=== PATIENT | male | born 1975 | race American Indian/Alaskan Native ===

== ENCOUNTER 2022-02-19 07:06 | Inpatient (IN) | payer BC, OTHER ==
--- NOTE | 2022-02-19 07:35 | Consultation ---
Medications and Allergies Allergies Allergy/AdvReac Type Severity Reaction Status Date / Time No Known Allergies Allergy Unverified 02/19/22 07:23 Physical Examination - Vital Signs Vital Signs: Vital Signs Temp Pulse Resp BP Pulse Ox 98.1 F 70 16 198/124 98 02/19/22 07:06 02/19/22 07:06 02/19/22 07:06 02/19/22 07:06 02/19/22 07:06 Assessment and Plan [facility] Consult Note # Demographics Consult Type: Acute Stroke Level 1 (0-4.5 hrs) Patient Location: Emergency Room First Name: Feroz Last Name: Doyle Date of : 1975 Age: 46 Gender: Male Facility: [facility] Time of Initial Page (): 02/19/2022, 07:21 Time of Return Call (): 02/19/2022, 07:23 # HPI History: 46M woke up with numbness and tingling to left arm and leg. No speech or vision trouble. Trouble sleeping last night, last well 05:30 reported. # Scores Time of exam and NIHSS (): 02/19/2022, 07:31 Level of Consciousness 1a: [0] = Alert; keenly responsive LOC Questions 1b: [0] = Answers both questions correctly LOC Commands 1c: [0] = Performs both tasks correctly Best Gaze 2: [0] = Normal Visual 3: [0] = No visual loss Facial Palsy 4: [0] = Normal symmetrical movements Motor Arm Left 5a: [0] = No drift Motor Arm Right 5b: [0] = No drift Motor Leg Left 6a: [0] = No drift Motor Leg Right 6b: [0] = No drift Limb Ataxia 7: [0] = Absent Sensory 8: [0] = Normal Best Language 9: [0] = No aphasia Dysarthria 10: [0] = Normal Extinction and Inattention 11: [0] = No abnormality NIHSS Total: 0 VAN Screening: Negative # PMH-FH-SH Past Medical History: hypertension Medications: non-compliant with medications # Data Time Head CT personally read by me ( Time): 02/19/2022, 07:[address]: no bleed preliminarily reviewed by me, please refer to radiology read for official reading # Assessment Impression: Ischemic Stroke (Acute) or hypertension related symptoms also possible. Deficit at time of my evaluation was non-disabling. # Plan Thrombolytic/Intervention: NOT IV Thrombolysis or IA Intervention candidate Thrombolytic Exclusion (< 3 hour window): non-disabling deficit Intraarterial Exclusion: clinically consistent with small vessel disease Blood Pressure Management: nicardipine labetolol Target Blood Pressure: SBP < 220 Imaging: (urgency: STAT): CT Head without contrast Imaging: (urgency: routine): MR Angiogram Head without contrast MR Angiogram Neck with contrast MRI Brain without contrast Diagnostic Test: echo with bubble study Medication: aspirin 81 mg daily start statin with goal of LDL < 70 Other: LDL < 70 If patient has any neurological deterioration please call me back immediately permissive hypertension telemetry monitoring I have discussed my recommendations with the referring provider Disposition: admit # Logistics Telemedicine: Interactive 2 way audio and visual telecommunication technology was utilized during this visit # Demographics First Name: Feroz Last Name: Doyle Facility: [facility]
--- NOTE | 2022-02-19 08:08 | XRay Report ---
CHEST 1 VIEW 02/19/2022 7:36 AM INDICATION / CLINICAL INFORMATION: CVA. COMPARISON: None available. FINDINGS: SUPPORT DEVICES: None. HEART / MEDIASTINUM: No significant abnormality. LUNGS / PLEURA: No significant pulmonary or pleural abnormality. No pneumothorax. ADDITIONAL FINDINGS: No significant additional findings. IMPRESSION: 1. No acute findings. Signer Name: Rajan Mas DO Signed: 02/19/2022 8:03 AM Workstation Name: [id number]
--- NOTE | 2022-02-19 08:15 | Cat Scan Report ---
CT head/brain wo con INDICATION / CLINICAL INFORMATION: 46 years Male; Stroke symptoms. TECHNIQUE: Routine CT head without contrast. All CT scans at this location are performed using CT dos e reduction for ALARA by means of automated exposure control. COMPARISON: None. FINDINGS: BRAIN / INTRACRANIAL CONTENTS: There are mild periventricular white matter changes which are nonspeci fic though may reflect microvascular angiopathy. There also appear to be old lacunar infarcts within the basal ganglia. The ventricular system is within normal limits in size and configuration. There is no clear CT evidence of acute intracranial hemorrhage or significant mass effect. ORBITS: No significant abnormality of visualized orbits. SINUSES / MASTOIDS: No significant abnormality in the visualized paranasal sinuses or mastoid air david ls. CRANIOCERVICAL JUNCTION: No significant abnormality. ADDITIONAL FINDINGS: None. IMPRESSION: 1. There is microvascular angiopathy as detailed above without CT ends of acute intracranial hemorrha ge. Signer Name: Jono Turcios MD Signed: 02/19/2022 8:11 AM Workstation Name: [email or web address]
[2022-02-19 08:25] LABS: Basophils % (Auto) 0.3 % (0.0-1.8); Eosinophils # (Auto) 0.1 K/mm3 (0.0-0.4); Eosinophils % (Auto) 0.8 % (0.0-4.3); Hemoglobin 17.2 gm/dl (11.8-15.2); Lymphocytes # (Auto) 0.9 K/mm3 (1.2-5.4); Lymphocytes % (Auto) 8.5 % (13.4-35.0); Mean Corpuscular HGB Conc 35 % (32-34); Mean Corpuscular Volume 95 fl (84-94); Monocytes % (Auto) 9.6 % (0.0-7.3); Platelet Count 223 K/mm3 (140-440); Red Blood Count 5.18 M/mm3 (3.65-5.03); Red Cell Distribution Width 13.2 % (13.2-15.2)
[2022-02-19] MEDS ORDERED: hydrALAZINE 20 MG/1 ML INJ IV ONE ×2 (08:33→13:37)
[2022-02-19 08:36] LABS: Creatine Kinase MB 2.8 ng/mL (0.0-4.0)
[2022-02-19 08:38] LABS: Alanine Aminotransferase 18 units/L (7-56); Albumin 4.7 g/dL (3.9-5); BUN/Creatinine Ratio 15; Blood Urea Nitrogen 18 mg/dL (9-20); Calcium 9.6 mg/dL (8.4-10.2); Hemolysis Index 8
--- NOTE | 2022-02-19 08:47 | Emergency Department Report ---
ED Neuro Deficit HPI - General Chief Complaint: Neuro Symptoms/Deficit Stated Complaint: HIGH BP/LEFT SIDE NUMBNESS Time Seen by Provider: 02/19/22 07:21 Source: patient, EMS Mode of arrival: Stretcher Limitations: Physical Limitation - History of Present Illness Initial Comments: PATIENT HYPERTENSIVE WITH LEFT SIDE NUMBNESS. NONCOMPLIANT WITH BLOOD PRESSURE MEDICATIONS -: Sudden, hour(s) Location: left arm, left leg Presenting Symptoms: Present: Weak/Paralyzed One Side History of same: No Place: home Severity: mild Quality: weak, numb Improves With: time Worsens With: none On Anticoagulants: No Context: sudden onset Associated Symptoms: denies: denies other symptoms, confusion, chest pain, cough, diaphoresis, fever/chills - Related Data Allergies/Adverse Reactions: Allergies Allergy/AdvReac Type Severity Reaction Status Date / Time No Known Allergies Allergy Unverified 02/19/22 07:23 ED Review of Systems ROS: Stated complaint: HIGH BP/LEFT SIDE NUMBNESS Other details as noted in HPI Constitutional: denies: chills, fever Eyes: denies: eye pain, eye discharge, vision change ENT: denies: ear pain, throat pain Respiratory: denies: cough, shortness of breath, wheezing Cardiovascular: denies: chest pain, palpitations Endocrine: no symptoms reported Gastrointestinal: denies: abdominal pain, nausea, diarrhea Genitourinary: denies: urgency, dysuria Musculoskeletal: denies: back pain, joint swelling, arthralgia Skin: denies: rash, lesions Neurological: denies: headache, weakness, paresthesias Psychiatric: denies: anxiety, depression Hematological/Lymphatic: denies: easy bleeding, easy bruising ED Past Medical Hx - Past Medical History Previous Medical History?: No Hx Hypertension: No ED Neuro Physical Exam - General Limitations: Physical Limitation General appearance: alert, in no apparent distress Suspected Stroke: Yes - Head Head exam: Present: atraumatic, normocephalic - Eye Eye exam: Present: normal appearance - ENT ENT exam: Present: mucous membranes moist - Neck Neck exam: Present: normal inspection - Respiratory Respiratory exam: Present: normal lung sounds bilaterally. Absent: respiratory distress - Cardiovascular Cardiovascular Exam: Present: regular rate, normal rhythm. Absent: systolic murmur, diastolic murmur, rubs, gallop - GI/Abdominal GI/Abdominal exam: Present: soft, normal bowel sounds - Rectal Rectal exam: Present: deferred - Extremities Exam Extremities exam: Present: normal inspection - Back Exam Back exam: Present: normal inspection - Neurological Exam Neurological exam: Present: alert, oriented X3 - NIHSS Assessment Interval: Baseline 1a. Level of Consciousness: alert/keenly responsive 1b. LOC Questions: answers both correctly 1c. LOC Commands: performs tasks correctly 2. Best Gaze: normal 3. Visual: no visual loss 4. Facial Palsy: normal symmetrical movement 5b. Motor Arm Right: no drift 5a. Motor Arm Left: no drift 6a. Motor Leg Left: no drift 6b. Motor Leg Right: no drift 7. Limb Ataxia: absent 8. Sensory: normal 9. Best Language: no aphasia 10. Dysarthria: normal 11. Extinction/Inattention: no abnormality Total Score: 0 Stroke Severity: No Stroke Symptoms - Psychiatric Psychiatric exam: Present: normal affect, normal mood - Skin Skin exam: Present: warm, dry, intact, normal color. Absent: rash ED Course Vital Signs 02/19/22 07:06 Temperature 98.1 F Pulse Rate 70 Respiratory 16 Rate Blood Pressure 198/124 [Left] O2 Sat by Pulse 98 Oximetry - Lab Data Result diagrams: 02/19/22 07:42 02/19/22 07:42 Lab Results 02/19/22 02/19/22 02/19/22 Range/Units 07:42 07:42 07:42 WBC 10.1 (4.5-11.0) K/mm3 RBC 5.18 H (3.65-5.03) M/mm3 Hgb 17.2 H (11.8-15.2) gm/dl Hct 49.0 H (35.5-45.6) % MCV 95 H (84-94) fl MCH 33 H (28-32) pg MCHC 35 H (32-34) % RDW 13.2 (13.2-15.2) % Plt Count 223 (140-440) K/mm3 Lymph % (Auto) 8.5 L (13.4-35.0) % Creek % (Auto) 9.6 H (0.0-7.3) % Eos % (Auto) 0.8 (0.0-4.3) % Baso % (Auto) 0.3 (0.0-1.8) % Lymph # (Auto) 0.9 L (1.2-5.4) K/mm3 [place] # (Auto) 1.0 H (0.0-0.8) K/mm3 Eos # (Auto) 0.1 (0.0-0.4) K/mm3 Baso # (Auto) 0.0 (0.0-0.1) K/mm3 Seg Neutrophils % 80.8 H (40.0-70.0) % Seg Neutrophils # 8.2 H (1.8-7.7) K/mm3 Sodium 143 (137-145) mmol/L Potassium 4.0 (3.6-5.0) mmol/L Chloride 103.5 (98-107) mmol/L Carbon Dioxide 26 (22-30) mmol/L Anion Gap 18 mmol/L BUN 18 (9-20) mg/dL Creatinine 1.2 (0.8-1.3) mg/dL Estimated GFR > 60 ml/min BUN/Creatinine Ratio 15 % Glucose 90 (75-100) mg/dL Calcium 9.6 (8.4-10.2) mg/dL Total Bilirubin 0.90 (0.1-1.2) mg/dL AST 22 (5-40) units/L ALT 18 (7-56) units/L Alkaline Phosphatase 70 (35-129) units/L Total Creatine Kinase 179 H (55-170) units/L CK-MB (CK-2) 2.8 (0.0-4.0) ng/mL CK-MB (CK-2) Rel Index 1.5 (0-4) Troponin T < 0.010 (0.00-0.029) ng/mL Total Protein 6.9 (6.3-8.2) g/dL Albumin 4.7 (3.9-5) g/dL Albumin/Globulin Ratio 2.1 % Plasma/Serum Alcohol < 0.01 (0-0.07) % - Radiology Data Radiology results: report reviewed, image reviewed - Medical Decision Making stroke alert , spoe with neuro, NIHSS of 0 , will admit for MRI , will control BP not candidate for TPA non disbalingsymtpoms Critical care attestation.: If time is entered above; I have spent that time in minutes in the direct care of this critically ill patient, excluding procedure time. ED Disposition Clinical Impression: Left sided numbness, TIA (transient ischemic attack) Disposition: ADMITTED INPATIENT Is pt being admited?: Yes Does the pt Need Aspirin: No Condition: Stable
[2022-02-19 09:34] LABS: INR 0.93 (0.87-1.13); Partial Thromboplastin Time 31.1 Sec. (24.2-36.6)
[2022-02-19 09:35] LABS: Thrombin Time 16.2 Sec. (15.1-19.6)
[2022-02-19] MEDS ORDERED: MORPHINE 4 MG/1 ML INJ IV PRN (11:00)
[2022-02-19] MEDS ORDERED: ONDANSETRON 4 MG/2 ML INJ IV PRN (11:00)
[2022-02-19] MEDS ORDERED: oxyCODONE /ACETAMINOPHEN 5-325MG TAB PO PRN (11:00)
[2022-02-19 11:52] LABS: Chol/HDL Ratio 2.66 %
[2022-02-19 12:39] LABS: Amphetamine Screen,Urine Negative; Benzodiazepines Screen,Urine Negative; Cannabinoid Screen,Urine Negative; Cocaine Screen,Urine Negative; Methadone Screen,Urine Negative; Opiate Screen,Urine Negative
[2022-02-19 12:54] LABS: Bilirubin,Urine NEG (Negative); Blood,Urine NEG (Negative); Color,Urine Yellow (Yellow); RBC,Urine < 1.0 /HPF (0.0-6.0); Urobilinogen,Urine < 2 mg/dL (<2.0); WBC,Urine < 1.0 /HPF (0.0-6.0)
--- NOTE | 2022-02-19 16:06 | History and Physical Report ---
History of Present Illness Date of examination: 02/19/22 Date of admission: 02/19/22 10:42 Chief complaint: Left arm and leg weakness History of present illness: Patient is a 46-year-old male past medical history of hypertension and medication noncompliance who presented to the ED with numbness and tingling of his left arm and leg after waking up this morning. Patient describes having trouble sleeping the night prior to presentation but was last seen well at approximately 5:30 PM. Patient denies any vision or speech abnormalities. Patient denies any history of stroke. In the ED, the patient was found to be hemodynamically stable with a blood pressure of 198/124. Patient's labs were unremarkable. Teleneurology was consulted, and the patient was not deemed to be a candidate for tPA. Patient is being admitted to the floor for CVA work-up. Past History Past Medical History: hypertension Past Surgical History: No surgical history Social history: single, full code Family history: hypertension, stroke Medications and Allergies Allergies Allergy/AdvReac Type Severity Reaction Status Date / Time No Known Allergies Allergy Unverified 02/19/22 07:23 Active Meds: Active Medications Acetaminophen (Acetaminophen 325 Mg Tab) 650 mg PO Q4H PRN PRN Reason: Pain MILD(1-3)/Fever >100.5/ARROYO Aspirin (Aspirin 325 Mg Tab) 325 mg PO QDAY CHRISTY Atorvastatin Calcium (Atorvastatin 40 Mg Tab) 40 mg PO QHS CHRISTY Morphine Sulfate (Morphine 4 Mg/1 Ml Inj) 2 mg IV Q4H PRN PRN Reason: Pain , Severe (7-10) Nifedipine (Nifedipine Xl 30 Mg Tab) 30 mg PO QDAY CHRISTY Ondansetron HCl (Ondansetron 4 Mg/2 Ml Inj) 4 mg IV Q8H PRN PRN Reason: Nausea And Vomiting Oxycodone/Acetaminophen (Oxycodone /Acetaminophen 5-325mg Tab) 1 tab PO Q6H PRN PRN Reason: Pain, Moderate (4-6) Sodium Chloride (Sodium Chloride 0.9% 10 Ml Flush Syringe) 10 ml IV BID CHRISTY Sodium Chloride (Sodium Chloride 0.9% 10 Ml Flush Syringe) 10 ml IV PRN PRN PRN Reason: LINE FLUSH Review of Systems All systems: negative Neurological: weakness (of R arm and leg), numbness (of R arm and leg) Exam - Constitutional Vitals: Temp Pulse Resp BP Pulse Ox 97.5 F L 61 14 202/112 98 02/19/22 10:01 02/19/22 13:30 02/19/22 13:30 02/19/22 13:30 02/19/22 13:30 General appearance: Present: no acute distress, well-nourished - EENT Eyes: Present: PERRL, EOM intact ENT: hearing intact, clear oral mucosa, dentition normal - Neck Neck: Present: supple, normal ROM - Respiratory Respiratory effort: normal Respiratory: bilateral: CTA - Cardiovascular Rhythm: regular Heart Sounds: Present: S1 & S2 - Extremities Extremities: no ischemia, pulses intact, pulses symmetrical, No edema, normal temperature, normal color Peripheral Pulses: within normal limits - Abdominal General gastrointestinal: Present: soft, non-tender, non-distended, normal bowel sounds Male genitourinary: Present: deferred - Rectal Rectal Exam: deferred - Integumentary Integumentary: Present: clear, warm, dry - Musculoskeletal Musculoskeletal: left sided weakness - Psychiatric Psychiatric: appropriate mood/affect (Numbness), intact judgment & insight, memory intact, cooperative - Neurologic Neurologic: CNII-XII intact, other (Numbness of left upper and lower extremity; 3/5 strength left upper extremity) - Allied Health Allied health notes reviewed: nursing HEART Score - HEART Score Troponin: Troponin T < 0.010 ng/mL (0.00-0.029) 02/19/22 07:42 Results - Labs CBC & Chem 7: 02/19/22 07:42 02/19/22 07:42 Labs: Laboratory Last Values WBC 10.1 K/mm3 (4.5-11.0) 02/19/22 07:42 RBC 5.18 M/mm3 (3.65-5.03) H 02/19/22 07:42 Hgb 17.2 gm/dl (11.8-15.2) H 02/19/22 07:42 Hct 49.0 % (35.5-45.6) H 02/19/22 07:42 MCV 95 fl (84-94) H 02/19/22 07:42 MCH 33 pg (28-32) H 02/19/22 07:42 MCHC 35 % (32-34) H 02/19/22 07:42 RDW 13.2 % (13.2-15.2) 02/19/22 07:42 Plt Count 223 K/mm3 (140-440) 02/19/22 07:42 Lymph % (Auto) 8.5 % (13.4-35.0) L 02/19/22 07:42 [place] % (Auto) 9.6 % (0.0-7.3) H 02/19/22 07:42 Eos % (Auto) 0.8 % (0.0-4.3) 02/19/22 07:42 Baso % (Auto) 0.3 % (0.0-1.8) 02/19/22 07:42 Lymph # (Auto) 0.9 K/mm3 (1.2-5.4) L 02/19/22 07:42 [place] # (Auto) 1.0 K/mm3 (0.0-0.8) H 02/19/22 07:42 Eos # (Auto) 0.1 K/mm3 (0.0-0.4) 02/19/22 07:42 Baso # (Auto) 0.0 K/mm3 (0.0-0.1) 02/19/22 07:42 Seg Neutrophils % 80.8 % (40.0-70.0) H 02/19/22 07:42 Seg Neutrophils # 8.2 K/mm3 (1.8-7.7) H 02/19/22 07:42 PT 13.8 Sec. (12.2-14.9) 02/19/22 07:42 INR 0.93 (0.87-1.13) 02/19/22 07:42 APTT 31.1 Sec. (24.2-36.6) 02/19/22 07:42 Thrombin Time 16.2 Sec. (15.1-19.6) 02/19/22 07:42 Sodium 143 mmol/L (137-145) 02/19/22 07:42 Potassium 4.0 mmol/L (3.6-5.0) 02/19/22 07:42 Chloride 103.5 mmol/L (98-107) 02/19/22 07:42 Carbon Dioxide 26 mmol/L (22-30) 02/19/22 07:42 Anion Gap 18 mmol/L 02/19/22 07:42 BUN 18 mg/dL (9-20) 02/19/22 07:42 Creatinine 1.2 mg/dL (0.8-1.3) 02/19/22 07:42 Estimated GFR > 60 ml/min 02/19/22 07:42 BUN/Creatinine Ratio 15 % 02/19/22 07:42 Glucose 90 mg/dL (75-100) 02/19/22 07:42 Hemoglobin A1c 4.4 % (4-6) 02/19/22 11:04 Calcium 9.6 mg/dL (8.4-10.2) 02/19/22 07:42 Total Bilirubin 0.90 mg/dL (0.1-1.2) 02/19/22 07:42 AST 22 units/L (5-40) 02/19/22 07:42 ALT 18 units/L (7-56) 02/19/22 07:42 Alkaline Phosphatase 70 units/L (35-129) 02/19/22 07:42 Total Creatine Kinase 179 units/L (55-170) H 02/19/22 07:42 CK-MB (CK-2) 2.8 ng/mL (0.0-4.0) 02/19/22 07:42 CK-MB (CK-2) Rel Index 1.5 (0-4) 02/19/22 07:42 Troponin T < 0.010 ng/mL (0.00-0.029) 02/19/22 07:42 Total Protein 6.9 g/dL (6.3-8.2) 02/19/22 07:42 Albumin 4.7 g/dL (3.9-5) 02/19/22 07:42 Albumin/Globulin Ratio 2.1 % 02/19/22 07:42 Triglycerides 73 mg/dL (2-149) 02/19/22 11:05 Cholesterol 192 mg/dL (50-199) 02/19/22 11:05 LDL Cholesterol Direct 110 mg/dL (50-130) 02/19/22 11:05 HDL Cholesterol 72 mg/dL (40-59) H 02/19/22 11:05 Cholesterol/HDL Ratio 2.66 % 02/19/22 11:05 Urine Color Yellow (Yellow) 02/19/22 12:17 Urine Turbidity Clear (Clear) 02/19/22 12:17 Urine pH 6.0 (5.0-7.0) 02/19/22 12:17 Ur Specific [place] 1.013 (1.003-1.030) 02/19/22 12:17 Urine Protein 30 mg/dl mg/dL (Negative) 02/19/22 12:17 Urine Glucose (UA) Neg mg/dL (Negative) 02/19/22 12:17 Urine Ketones Tr mg/dL (Negative) 02/19/22 12:17 Urine Blood Neg (Negative) 02/19/22 12:17 Urine Nitrite Neg (Negative) 02/19/22 12:17 Urine Bilirubin Neg (Negative) 02/19/22 12:17 Urine Urobilinogen < 2 mg/dL (<2.0) 02/19/22 12:17 Ur Leukocyte Esterase Neg (Negative) 02/19/22 12:17 Urine WBC (Auto) < 1.0 /HPF (0.0-6.0) 02/19/22 12:17 Urine RBC (Auto) < 1.0 /HPF (0.0-6.0) 02/19/22 12:17 U Epithel Cells (Auto) < 1.0 /HPF (0-13.0) 02/19/22 12:17 Urine Opiates Screen Negative 02/19/22 12:17 Urine Methadone Screen Negative 02/19/22 12:17 Ur Barbiturates Screen Negative 02/19/22 12:17 Ur Phencyclidine Scrn Negative 02/19/22 12:17 Ur Amphetamines Screen Negative 02/19/22 12:17 U Benzodiazepines Scrn Negative 02/19/22 12:17 Urine Cocaine Screen Negative 02/19/22 12:17 U Marijuana (THC) Screen Negative 02/19/22 12:17 Drugs of Abuse Note Disclamer 02/19/22 12:17 Plasma/Serum Alcohol < 0.01 % (0-0.07) 02/19/22 07:42 Assessment and Plan Assessment and plan: Patient is a 46-year-old male past medical history of hypertension and medication noncompliance who presented to the ED with numbness and tingling of his left arm and leg after waking up this morning. Patient describes having trouble sleeping the night prior to presentation but was last seen well at approximately 5:30 PM. Patient denies any vision or speech abnormalities. Patient denies any history of stroke. In the ED, the patient was found to be h emodynamically stable with a blood pressure of 198/124. Patient's labs were unremarkable. Teleneurology was consulted, and the patient was not deemed to be a candidate for tPA. Patient is being admitted to the floor for CVA work-up. #Possible acute ischemic CVA #Weakness of right upper and lower extremity Unremarkable CT head noncontrast Pending MRI brain without contrast to evaluate for possible acute ischemic CVA. Pending TTE to evaluate cardiac function and for possible PFO/ASD. Continue aspirin 325 mg daily, atorvastatin 40 mg daily. Neurology consulted; pending recs. Physical therapy and Occupational Therapy consulted; pending recs Cholesterol panel: Triglycerides 73, cholesterol 192, LDL 110, HDL 72; Hemoglobin A1c 4.4 #Hypertensive emergency - home medications: None - current medications: Nifedipine 30 mg daily. Allowing permissive hypertension in the setting of possible acute ischemic CVA. - continue to monitor #Tobacco dependence #Tobacco/Smoking cessation counseling - Counseled patient about the importance of smoking cessation and the possible sequelae as a result of continued tobacco consumption. The patient expresses understanding. Starting nicotine 14 mg patch daily. -Time: +15 mins Critical Care Billing: The high probability of a clinically significant, sudden or life threatening deterioration of the [cardiac] system(s) required my full and direct attention, intervention and personal management. The aggregate critical care time was [60] minutes. This time is in addition to time spent performing reported procedures but includes the following: [x] Data Review and interpretation [x] Patient assessment and monitoring of vital signs [x] Documentation [x] Medication orders and management Advance Directives: No VTE prophylaxis?: Mechanical Plan of care discussed with patient/family: Yes
[2022-02-19] MEDS: NIFEdipine XL 30 MG TAB PO SCH ×2 (17:42→18:43)
[2022-02-19] MEDS: NICOTINE 14 MG/24 HR PATCH TD SCH (22:20)
[2022-02-19] MEDS: hydrALAZINE 20 MG/1 ML INJ IV PRN (22:28)
[2022-02-20] MEDS: NIFEdipine XL 30 MG TAB PO SCH (09:30)
[2022-02-20] MEDS: ASPIRIN 325 MG TAB PO SCH (09:31)
[2022-02-20] MEDS: NICOTINE 14 MG/24 HR PATCH TD SCH (09:31)
--- NOTE | 2022-02-20 12:06 | Progress Note ---
Assessment and Plan Assessment and plan: Patient is a 46-year-old male past medical history of hypertension and medication noncompliance who presented to the ED with numbness and tingling of his left arm and leg after waking up this morning. Patient describes having trouble sleeping the night prior to presentation but was last seen well at approximately 5:30 PM. Patient denies any vision or speech abnormalities. Patient denies any history of stroke. In the ED, the patient was found to be hemodynamically stable with a blood pressure of 198/124. Patient's labs were unremarkable. Teleneurology was consulted, and the patient was not deemed to be a candidate for tPA. Patient is being admitted to the floor for CVA work-up. #Possible acute ischemic CVA #Weakness of right upper and lower extremity Unremarkable CT head noncontrast Pending MRI brain without contrast to evaluate for possible acute ischemic CVA. Pending TTE to evaluate cardiac function and for possible PFO/ASD. Continue aspirin 325 mg daily, atorvastatin 40 mg daily. Neurology consulted; pending recs. Physical therapy and Occupational Therapy consulted; recommending acute rehab. Cholesterol panel: Triglycerides 73, cholesterol 192, LDL 110, HDL 72; Hemoglobin A1c 4.4 #Hypertensive emergency - home medications: None - current medications: Nifedipine 30 mg daily. Allowing permissive hypertension in the setting of possible acute ischemic CVA. - continue to monitor #Tobacco dependence #Tobacco/Smoking cessation counseling - Counseled patient about the importance of smoking cessation and the possible sequelae as a result of continued tobacco consumption. The patient expresses understanding. Starting nicotine 14 mg patch daily. -Time: +15 mins #Advanced care planning -Disease education conducted, care plan discussed, diagnoses discussed, prognosis discussed, and patient acknowledges understanding with care plan -Time: +30 min Disposition Plan: Continue medical management Total Time Spent with Patient (Minutes): 45 minutes History Interval history: No acute events overnight. Hospitalist Physical - Constitutional Vitals: Temp Pulse Resp BP Pulse Ox 98.2 F 92 H 18 158/95 95 02/20/22 04:32 02/20/22 04:32 02/20/22 04:32 02/20/22 04:32 02/20/22 04:32 General appearance: Present: no acute distress, well-nourished - EENT Eyes: Present: PERRL, EOM intact ENT: hearing intact, clear oral mucosa, dentition normal - Neck Neck: Present: supple, normal ROM - Respiratory Respiratory effort: normal Respiratory: bilateral: CTA - Cardiovascular Rhythm: regular Heart Sounds: Present: S1 & S2 - Extremities Extremities: no ischemia, pulses intact, pulses symmetrical, No edema, normal temperature, normal color Peripheral Pulses: within normal limits - Abdominal General gastrointestinal: soft, non-tender, non-distended, normal bowel sounds - Integumentary Integumentary: Present: clear, warm, dry - Psychiatric Psychiatric: appropriate mood/affect, intact judgment & insight, memory intact, cooperative - Neurologic Neurologic: CNII-XII intact, focal deficits (Weakness of left upper and lower extremities; numbness of left upper and lower extremities) - Allied Health Allied health notes reviewed: nursing HEART Score - HEART Score Troponin: Troponin T < 0.010 ng/mL (0.00-0.029) 02/19/22 07:42 Results - Labs CBC & Chem 7: 02/19/22 07:42 02/19/22 07:42 Labs: Laboratory Last Values WBC 10.1 K/mm3 (4.5-11.0) 02/19/22 07:42 RBC 5.18 M/mm3 (3.65-5.03) H 02/19/22 07:42 Hgb 17.2 gm/dl (11.8-15.2) H 02/19/22 07:42 Hct 49.0 % (35.5-45.6) H 02/19/22 07:42 MCV 95 fl (84-94) H 02/19/22 07:42 MCH 33 pg (28-32) H 02/19/22 07:42 MCHC 35 % (32-34) H 02/19/22 07:42 RDW 13.2 % (13.2-15.2) 02/19/22 07:42 Plt Count 223 K/mm3 (140-440) 02/19/22 07:42 Lymph % (Auto) 8.5 % (13.4-35.0) L 02/19/22 07:42 [place] % (Auto) 9.6 % (0.0-7.3) H 02/19/22 07:42 Eos % (Auto) 0.8 % (0.0-4.3) 02/19/22 07:42 Baso % (Auto) 0.3 % (0.0-1.8) 02/19/22 07:42 Lymph # (Auto) 0.9 K/mm3 (1.2-5.4) L 02/19/22 07:42 [place] # (Auto) 1.0 K/mm3 (0.0-0.8) H 02/19/22 07:42 Eos # (Auto) 0.1 K/mm3 (0.0-0.4) 02/19/22 07:42 Baso # (Auto) 0.0 K/mm3 (0.0-0.1) 02/19/22 07:42 Seg Neutrophils % 80.8 % (40.0-70.0) H 02/19/22 07:42 Seg Neutrophils # 8.2 K/mm3 (1.8-7.7) H 02/19/22 07:42 PT 13.8 Sec. (12.2-14.9) 02/19/22 07:42 INR 0.93 (0.87-1.13) 02/19/22 07:42 APTT 31.1 Sec. (24.2-36.6) 02/19/22 07:42 Thrombin Time 16.2 Sec. (15.1-19.6) 02/19/22 07:42 Sodium 143 mmol/L (137-145) 02/19/22 07:42 Potassium 4.0 mmol/L (3.6-5.0) 02/19/22 07:42 Chloride 103.5 mmol/L (98-107) 02/19/22 07:42 Carbon Dioxide 26 mmol/L (22-30) 02/19/22 07:42 Anion Gap 18 mmol/L 02/19/22 07:42 BUN 18 mg/dL (9-20) 02/19/22 07:42 Creatinine 1.2 mg/dL (0.8-1.3) 02/19/22 07:42 Estimated GFR > 60 ml/min 02/19/22 07:42 BUN/Creatinine Ratio 15 % 02/19/22 07:42 Glucose 90 mg/dL (75-100) 02/19/22 07:42 Hemoglobin A1c 4.4 % (4-6) 02/19/22 11:04 Calcium 9.6 mg/dL (8.4-10.2) 02/19/22 07:42 Total Bilirubin 0.90 mg/dL (0.1-1.2) 02/19/22 07:42 AST 22 units/L (5-40) 02/19/22 07:42 ALT 18 units/L (7-56) 02/19/22 07:42 Alkaline Phosphatase 70 units/L (35-129) 02/19/22 07:42 Total Creatine Kinase 179 units/L (55-170) H 02/19/22 07:42 CK-MB (CK-2) 2.8 ng/mL (0.0-4.0) 02/19/22 07:42 CK-MB (CK-2) Rel Index 1.5 (0-4) 02/19/22 07:42 Troponin T < 0.010 ng/mL (0.00-0.029) 02/19/22 07:42 Total Protein 6.9 g/dL (6.3-8.2) 02/19/22 07:42 Albumin 4.7 g/dL (3.9-5) 02/19/22 07:42 Albumin/Globulin Ratio 2.1 % 02/19/22 07:42 Triglycerides 73 mg/dL (2-149) 02/19/22 11:05 Cholesterol 192 mg/dL (50-199) 02/19/22 11:05 LDL Cholesterol Direct 110 mg/dL (50-130) 02/19/22 11:05 HDL Cholesterol 72 mg/dL (40-59) H 02/19/22 11:05 Cholesterol/HDL Ratio 2.66 % 02/19/22 11:05 Urine Color Yellow (Yellow) 02/19/22 12:17 Urine Turbidity Clear (Clear) 02/19/22 12:17 Urine pH 6.0 (5.0-7.0) 02/19/22 12:17 Ur Specific [place] 1.013 (1.003-1.030) 02/19/22 12:17 Urine Protein 30 mg/dl mg/dL (Negative) 02/19/22 12:17 Urine Glucose (UA) Neg mg/dL (Negative) 02/19/22 12:17 Urine Ketones Tr mg/dL (Negative) 02/19/22 12:17 Urine Blood Neg (Negative) 02/19/22 12:17 Urine Nitrite Neg (Negative) 02/19/22 12:17 Urine Bilirubin Neg (Negative) 02/19/22 12:17 Urine Urobilinogen < 2 mg/dL (<2.0) 02/19/22 12:17 Ur Leukocyte Esterase Neg (Negative) 02/19/22 12:17 Urine WBC (Auto) < 1.0 /HPF (0.0-6.0) 02/19/22 12:17 Urine RBC (Auto) < 1.0 /HPF (0.0-6.0) 02/19/22 12:17 U Epithel Cells (Auto) < 1.0 /HPF (0-13.0) 02/19/22 12:17 Urine Opiates Screen Negative 02/19/22 12:17 Urine Methadone Screen Negative 02/19/22 12:17 Ur Barbiturates Screen Negative 02/19/22 12:17 Ur Phencyclidine Scrn Negative 02/19/22 12:17 Ur Amphetamines Screen Negative 02/19/22 12:17 U Benzodiazepines Scrn Negative 02/19/22 12:17 Urine Cocaine Screen Negative 02/19/22 12:17 U Marijuana (THC) Screen Negative 02/19/22 12:17 Drugs of Abuse Note Disclamer 02/19/22 12:17 Plasma/Serum Alcohol < 0.01 % (0-0.07) 02/19/22 07:42 Active Medications - Current Medications Current Medications: Generic Name Dose Route Start Last Admin Trade Name Freq PRN Reason Stop Dose Admin Acetaminophen 650 mg 02/19/22 11:00 Acetaminophen 325 Mg Tab PO Q4H PRN Pain MILD(1-3)/Fever >100.5/ARROYO Aspirin 325 mg 02/20/22 10:00 02/20/22 09:31 Aspirin 325 Mg Tab PO 325 mg QDAY CHRISTY Administration Atorvastatin Calcium 40 mg 02/19/22 22:00 02/19/22 22:28 Atorvastatin 40 Mg Tab PO 40 mg QHS CHRISTY Administration Hydralazine HCl 10 mg 02/19/22 18:48 02/19/22 22:28 Hydralazine 20 Mg/1 Ml Inj IV 10 mg Q6HR PRN Administration Hypertension Morphine Sulfate 2 mg 02/19/22 11:00 Morphine 4 Mg/1 Ml Inj IV Q4H PRN Pain , Severe (7-10) Nicotine 14 mg 02/19/22 19:00 02/20/22 09:31 Nicotine 14 Mg/24 Hr Patch TD 14 mg QDAY CHRISTY Administration Nifedipine 30 mg 02/20/22 10:00 02/20/22 09:30 Nifedipine Xl 30 Mg Tab PO 30 mg QDAY CHRISTY Administration Ondansetron HCl 4 mg 02/19/22 11:00 Ondansetron 4 Mg/2 Ml Inj IV Q8H PRN Nausea And Vomiting Oxycodone/Acetaminophen 1 tab 02/19/22 11:00 Oxycodone /Acetaminophen 5-325mg Tab PO Q6H PRN Pain, Moderate (4-6) Sodium Chloride 10 ml 02/19/22 22:00 02/20/22 09:31 Sodium Chloride 0.9% 10 Ml Flush Syringe IV 10 ml BID CHRISTY Administration Sodium Chloride 10 ml 02/19/22 11:00 Sodium Chloride 0.9% 10 Ml Flush Syringe IV PRN PRN LINE FLUSH
[2022-02-20] MEDS ORDERED: LORazepam 2 MG/ML VIAL IV ONE (12:30)
--- NOTE | 2022-02-20 13:24 | Magnetic Resonance Report ---
MRI BRAIN WITHOUT CONTRAST INDICATION / CLINICAL INFORMATION: CVA workup. Stroke symptoms. TECHNIQUE: Multisequence, multiplanar images were obtained. COMPARISON: CT head 02/21/2022 FINDINGS: CEREBRAL and CEREBELLAR HEMISPHERES: Focal area of diffusion restriction in the right gangliocapsular region extending to the right jimenez radiata measures up to 2.4 x 1.6 x 2.5 cm. No other areas of di ffusion restriction are identified. Mild T2 signal abnormalities are identified in the periventricula r and subcortical white matter consistent with chronic microangiopathy. No chronic infarct. No hemorr luciano, mass or mass effect. No extra-axial fluid collection. VENTRICLES: Normal in size and configuration for age. VISUALIZED ORBITS: No significant abnormality. VISUALIZED PARANASAL SINUSES: No significant abnormality. ADDITIONAL FINDINGS: None. IMPRESSION: 1. Acute to subacute area of ischemia in the right gangliocapsular region as described. No evidence f or hemorrhage. 2. Mild chronic microvascular ischemic changes in the white matter. Signer Name: Bryan Concepcion Jr, MD Signed: 02/20/2022 1:19 PM Workstation Name: [id number]
--- NOTE | 2022-02-20 16:03 | Consultation ---
History of Present Illness Consult date: 02/20/22 Reason for Consult: CVA History of present illness: Patient is a 46-year-old male past medical history of hypertension and medication noncompliance who presented to the ED with numbness and tingling of his left arm and leg after waking up this morning. Patient describes having trouble sleeping the night prior to presentation but was last seen well at approximately 5:30 PM. Patient denies any vision or speech abnormalities. Patient denies any history of stroke. In the ED, the patient was found to be hemodynamically stable with a blood pressure of 198/124. Patient's labs were unremarkable. Teleneurology was consulted, and the patient was not deemed to be a candidate for tPA. Patient is being admitted to the floor for CVA work-up. The patient reports left upper extremity numbness which is same, there is no weakness . Past History Past Medical History: hypertension Past Surgical History: No surgical history Social history: single, full code Family history: hypertension, stroke Medications and Allergies Allergies Allergy/AdvReac Type Severity Reaction Status Date / Time No Known Allergies Allergy Verified 02/20/22 13:24 Home Medications Medication Instructions Recorded Confirmed Last Taken Type Losartan [Cozaar] 25 mg PO QDAY 02/20/22 02/20/22 2 Months Ago History ~12/20/21 Active Meds: Active Medications Acetaminophen (Acetaminophen 325 Mg Tab) 650 mg PO Q4H PRN PRN Reason: Pain MILD(1-3)/Fever >100.5/ARROYO Aspirin (Aspirin 325 Mg Tab) 325 mg PO QDAY [facility] Last Admin: 02/20/22 09:31 Dose: 325 mg Atorvastatin Calcium (Atorvastatin 40 Mg Tab) 40 mg PO QHS [facility] Last Admin: 02/19/22 22:28 Dose: 40 mg Hydralazine HCl (Hydralazine 20 Mg/1 Ml Inj) 10 mg IV Q6HR PRN PRN Reason: Hypertension Last Admin: 02/19/22 22:28 Dose: 10 mg Morphine Sulfate (Morphine 4 Mg/1 Ml Inj) 2 mg IV Q4H PRN PRN Reason: Pain , Severe (7-10) Nicotine (Nicotine 14 Mg/24 Hr Patch) 14 mg TD QDAY [facility] Last Admin: 02/20/22 09:31 Dose: 14 mg Nifedipine (Nifedipine Xl 30 Mg Tab) 30 mg PO QDAY [facility] Last Admin: 02/20/22 09:30 Dose: 30 mg Ondansetron HCl (Ondansetron 4 Mg/2 Ml Inj) 4 mg IV Q8H PRN PRN Reason: Nausea And Vomiting Oxycodone/Acetaminophen (Oxycodone /Acetaminophen 5-325mg Tab) 1 tab PO Q6H PRN PRN Reason: Pain, Moderate (4-6) Sodium Chloride (Sodium Chloride 0.9% 10 Ml Flush Syringe) 10 ml IV BID [facility] Last Admin: 02/20/22 09:31 Dose: 10 ml Sodium Chloride (Sodium Chloride 0.9% 10 Ml Flush Syringe) 10 ml IV PRN PRN PRN Reason: LINE FLUSH Physical Examination - Vital Signs Vital Signs: Vital Signs Temp Pulse Resp BP Pulse Ox 98.1 F 70 16 198/124 98 02/19/22 07:06 02/19/22 07:06 02/19/22 07:06 02/19/22 07:06 02/19/22 07:06 - Physical Exam Narrative exam: Left Side Weakness Strength in the Left Upper and Lower Extremity is 1-2/5 . Results - Laboratory Findings CBC and BMP: 02/19/22 07:42 02/19/22 07:42 Abnormal Lab Findings: Abnormal Labs 02/19/22 02/19/22 02/19/22 07:42 07:42 11:05 RBC 5.18 H Hgb 17.2 H Hct 49.0 H MCV 95 H MCH 33 H MCHC 35 H Lymph % (Auto) 8.5 L [place] % (Auto) 9.6 H Lymph # (Auto) 0.9 L [place] # (Auto) 1.0 H Seg Neutrophils % 80.8 H Seg Neutrophils # 8.2 H Total Creatine Kinase 179 H HDL Cholesterol 72 H Assessment and Plan 1. Acute CVA - ( new CVA - ( MRI Brain reviewed ) 2. MRA Brain and MRA Carotids 3. Reviewed All Medications 4. Strongly Recommend PT /OT inpatient . Dr. Fajardo
[2022-02-20] MEDS: hydrALAZINE 20 MG/1 ML INJ IV PRN (17:05)
[2022-02-20] MEDS: ACETAMINOPHEN 325 MG TAB PO PRN (20:25)
[2022-02-21] MEDS: hydrALAZINE 20 MG/1 ML INJ IV PRN ×2 (06:33→13:26)
[2022-02-21] MEDS: ACETAMINOPHEN 325 MG TAB PO PRN (06:33)
[2022-02-21] MEDS: ASPIRIN 325 MG TAB PO SCH (09:44)
[2022-02-21] MEDS: NICOTINE 14 MG/24 HR PATCH TD SCH (09:45)
[2022-02-21] MEDS: NIFEdipine XL 30 MG TAB PO SCH (09:45)
--- NOTE | 2022-02-21 18:41 | Progress Note ---
Assessment and Plan Assessment and plan: 46-year-old male past medical history of hypertension and medication noncompliance who presented to the ED with numbness and tingling of his left arm and leg after waking up this morning. Patient describes having trouble sleeping the night prior to presentation but was last seen well at approximately 5:30 PM. Patient denies any vision or speech abnormalities. Patient denies any history of stroke. In the ED, the patient was found to be hemodynamically stable with a blood pressure of 198/124. Patient's labs were unremarkable. Teleneurology was consulted, and the patient was not deemed to be a candidate for tPA. Patient is being admitted to the floor for CVA work-up. # acute ischemic right CVA Unremarkable CT head noncontrast MRI shows right ganglio capsular infarct extending into jimenez radiata --Sinus rhythm on EKG, echocardiogram shows moderate LVH, bubble study negative. Continue aspirin 325 mg daily, atorvastatin 40 mg daily. Neurology consulted, MRI head and neck pending. - Has significant left upper and lower extremity weakness, 2\5 strength. On pured diet as per ST. Physical therapy and Occupational Therapy consulted; recommending acute rehab. Cholesterol panel: Triglycerides 73, cholesterol 192, LDL 110, HDL 72; Hemoglobin A1c 4.4 #Hypertensive emergency - home medications: None - current medications: Nifedipine 30 mg daily. Allowing permissive hypertension in the setting of possible acute ischemic CVA. - continue to monitor #Tobacco dependence #Tobacco/Smoking cessation counseling - Counseled patient about the importance of smoking cessation and the possible sequelae as a result of continued tobacco consumption. The patient expresses understanding. Starting nicotine 14 mg patch daily. -Time: +15 mins #Advanced care planning -Disease education conducted, care plan discussed, diagnoses discussed, prognosis discussed, and patient acknowledges understanding with care plan Disposition: PT recommending acute rehab. Discussed with the patient and the nursing staff. History Interval history: Patient is tolerating pureed, speech is fine, significant left-sided weakness with difficulty getting up or ambulate. Hospitalist Physical - Constitutional Vitals: Temp Pulse Resp BP Pulse Ox 98.5 F 85 50 H 166/103 98 02/21/22 05:28 02/21/22 13:26 02/21/22 05:28 02/21/22 13:26 02/21/22 10:00 General appearance: Present: no acute distress, well-nourished - EENT Eyes: Present: PERRL, EOM intact ENT: hearing intact - Neck Neck: Present: supple - Respiratory Respiratory effort: normal Respiratory: bilateral: CTA - Cardiovascular Rhythm: regular - Extremities Extremities: No edema - Abdominal General gastrointestinal: soft, non-tender, non-distended, normal bowel sounds - Integumentary Integumentary: Absent: rash - Psychiatric Psychiatric: appropriate mood/affect - Neurologic Neurologic: other (Alert/oriented, normal speech, mild left lower facial weakness present, 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, strength in left upper extremity 2/5, strength of left lower extremity 2/5) HEART Score - HEART Score Troponin: Troponin T < 0.010 ng/mL (0.00-0.029) 02/19/22 07:42 Results - Labs CBC & Chem 7: 02/19/22 07:42 02/19/22 07:42 Labs: Laboratory Last Values WBC 10.1 K/mm3 (4.5-11.0) 02/19/22 07:42 RBC 5.18 M/mm3 (3.65-5.03) H 02/19/22 07:42 Hgb 17.2 gm/dl (11.8-15.2) H 02/19/22 07:42 Hct 49.0 % (35.5-45.6) H 02/19/22 07:42 MCV 95 fl (84-94) H 02/19/22 07:42 MCH 33 pg (28-32) H 02/19/22 07:42 MCHC 35 % (32-34) H 02/19/22 07:42 RDW 13.2 % (13.2-15.2) 02/19/22 07:42 Plt Count 223 K/mm3 (140-440) 02/19/22 07:42 Lymph % (Auto) 8.5 % (13.4-35.0) L 02/19/22 07:42 [place] % (Auto) 9.6 % (0.0-7.3) H 02/19/22 07:42 Eos % (Auto) 0.8 % (0.0-4.3) 02/19/22 07:42 Baso % (Auto) 0.3 % (0.0-1.8) 02/19/22 07:42 Lymph # (Auto) 0.9 K/mm3 (1.2-5.4) L 02/19/22 07:42 [place] # (Auto) 1.0 K/mm3 (0.0-0.8) H 02/19/22 07:42 Eos # (Auto) 0.1 K/mm3 (0.0-0.4) 02/19/22 07:42 Baso # (Auto) 0.0 K/mm3 (0.0-0.1) 02/19/22 07:42 Seg Neutrophils % 80.8 % (40.0-70.0) H 02/19/22 07:42 Seg Neutrophils # 8.2 K/mm3 (1.8-7.7) H 02/19/22 07:42 PT 13.8 Sec. (12.2-14.9) 02/19/22 07:42 INR 0.93 (0.87-1.13) 02/19/22 07:42 APTT 31.1 Sec. (24.2-36.6) 02/19/22 07:42 Thrombin Time 16.2 Sec. (15.1-19.6) 02/19/22 07:42 Sodium 143 mmol/L (137-145) 02/19/22 07:42 Potassium 4.0 mmol/L (3.6-5.0) 02/19/22 07:42 Chloride 103.5 mmol/L (98-107) 02/19/22 07:42 Carbon Dioxide 26 mmol/L (22-30) 02/19/22 07:42 Anion Gap 18 mmol/L 02/19/22 07:42 BUN 18 mg/dL (9-20) 02/19/22 07:42 Creatinine 1.2 mg/dL (0.8-1.3) 02/19/22 07:42 Estimated GFR > 60 ml/min 02/19/22 07:42 BUN/Creatinine Ratio 15 % 02/19/22 07:42 Glucose 90 mg/dL (75-100) 02/19/22 07:42 POC Glucose 94 mg/dL (70-105) 02/21/22 15:54 Hemoglobin A1c 4.4 % (4-6) 02/19/22 11:04 Calcium 9.6 mg/dL (8.4-10.2) 02/19/22 07:42 Total Bilirubin 0.90 mg/dL (0.1-1.2) 02/19/22 07:42 AST 22 units/L (5-40) 02/19/22 07:42 ALT 18 units/L (7-56) 02/19/22 07:42 Alkaline Phosphatase 70 units/L (35-129) 02/19/22 07:42 Total Creatine Kinase 179 units/L (55-170) H 02/19/22 07:42 CK-MB (CK-2) 2.8 ng/mL (0.0-4.0) 02/19/22 07:42 CK-MB (CK-2) Rel Index 1.5 (0-4) 02/19/22 07:42 Troponin T < 0.010 ng/mL (0.00-0.029) 02/19/22 07:42 Total Protein 6.9 g/dL (6.3-8.2) 02/19/22 07:42 Albumin 4.7 g/dL (3.9-5) 02/19/22 07:42 Albumin/Globulin Ratio 2.1 % 02/19/22 07:42 Triglycerides 73 mg/dL (2-149) 02/19/22 11:05 Cholesterol 192 mg/dL (50-199) 02/19/22 11:05 LDL Cholesterol Direct 110 mg/dL (50-130) 02/19/22 11:05 HDL Cholesterol 72 mg/dL (40-59) H 02/19/22 11:05 Cholesterol/HDL Ratio 2.66 % 02/19/22 11:05 Urine Color Yellow (Yellow) 02/19/22 12:17 Urine Turbidity Clear (Clear) 02/19/22 12:17 Urine pH 6.0 (5.0-7.0) 02/19/22 12:17 Ur Specific [place] 1.013 (1.003-1.030) 02/19/22 12:17 Urine Protein 30 mg/dl mg/dL (Negative) 02/19/22 12:17 Urine Glucose (UA) Neg mg/dL (Negative) 02/19/22 12:17 Urine Ketones Tr mg/dL (Negative) 02/19/22 12:17 Urine Blood Neg (Negative) 02/19/22 12:17 Urine Nitrite Neg (Negative) 02/19/22 12:17 Urine Bilirubin Neg (Negative) 02/19/22 12:17 Urine Urobilinogen < 2 mg/dL (<2.0) 02/19/22 12:17 Ur Leukocyte Esterase Neg (Negative) 02/19/22 12:17 Urine WBC (Auto) < 1.0 /HPF (0.0-6.0) 02/19/22 12:17 Urine RBC (Auto) < 1.0 /HPF (0.0-6.0) 02/19/22 12:17 U Epithel Cells (Auto) < 1.0 /HPF (0-13.0) 02/19/22 12:17 Urine Opiates Screen Negative 02/19/22 12:17 Urine Methadone Screen Negative 02/19/22 12:17 Ur Barbiturates Screen Negative 02/19/22 12:17 Ur Phencyclidine Scrn Negative 02/19/22 12:17 Ur Amphetamines Screen Negative 02/19/22 12:17 U Benzodiazepines Scrn Negative 02/19/22 12:17 Urine Cocaine Screen Negative 02/19/22 12:17 U Marijuana (THC) Screen Negative 02/19/22 12:17 Drugs of Abuse Note Disclamer 02/19/22 12:17 Plasma/Serum Alcohol < 0.01 % (0-0.07) 02/19/22 07:42 Amaya/IV: Voiding Method Urinal Active Medications - Current Medications Current Medications: Generic Name Dose Route Start Last Admin Trade Name Freq PRN Reason Stop Dose Admin Acetaminophen 650 mg 02/19/22 11:00 02/21/22 06:33 Acetaminophen 325 Mg Tab PO 650 mg Q4H PRN Administration Pain MILD(1-3)/Fever >100.5/ARROYO Aspirin 325 mg 02/20/22 10:00 02/21/22 09:44 Aspirin 325 Mg Tab PO 325 mg QDAY CHRISTY Administration Atorvastatin Calcium 40 mg 02/19/22 22:00 02/20/22 21:28 Atorvastatin 40 Mg Tab PO Not Given QHS [facility] Hydralazine HCl 10 mg 02/19/22 18:48 02/21/22 13:26 Hydralazine 20 Mg/1 Ml Inj IV 10 mg Q6HR PRN Administration Hypertension Morphine Sulfate 2 mg 02/19/22 11:00 Morphine 4 Mg/1 Ml Inj IV Q4H PRN Pain , Severe (7-10) Nicotine 14 mg 02/19/22 19:00 02/21/22 09:45 Nicotine 14 Mg/24 Hr Patch TD 14 mg QDAY CHRISTY Administration Nifedipine 30 mg 02/20/22 10:00 02/21/22 09:45 Nifedipine Xl 30 Mg Tab PO 30 mg QDAY CHRISTY Administration Ondansetron HCl 4 mg 02/19/22 11:00 Ondansetron 4 Mg/2 Ml Inj IV Q8H PRN Nausea And Vomiting Oxycodone/Acetaminophen 1 tab 02/19/22 11:00 Oxycodone /Acetaminophen 5-325mg Tab PO Q6H PRN Pain, Moderate (4-6) Sodium Chloride 10 ml 02/19/22 22:00 02/21/22 09:46 Sodium Chloride 0.9% 10 Ml Flush Syringe IV 10 ml BID CHRISTY Administration Sodium Chloride 10 ml 02/19/22 11:00 Sodium Chloride 0.9% 10 Ml Flush Syringe IV PRN PRN LINE FLUSH
[2022-02-22] MEDS: NICOTINE 14 MG/24 HR PATCH TD SCH (09:58)
[2022-02-22] MEDS: ASPIRIN 325 MG TAB PO SCH (09:59)
[2022-02-22] MEDS: NIFEdipine XL 30 MG TAB PO SCH (09:59)
[2022-02-22] MEDS: hydrALAZINE 20 MG/1 ML INJ IV PRN (13:46)
[2022-02-22] MEDS ORDERED: LORazepam 2 MG/ML VIAL IV ONE (14:34)
[2022-02-22] MEDS: NIFEdipine XL 60 MG TAB PO SCH ×2 (14:50→22:44)
[2022-02-22] MEDS: LOSARTAN 50 MG TAB PO SCH (14:50)
--- NOTE | 2022-02-22 17:05 | Magnetic Resonance Report ---
MR MRA/MRV neck wo/w con, MR MRA/MRV head wo con INDICATION / CLINICAL INFORMATION: Acute cerebral infarct. TECHNIQUE: Routine MRA of the head and routine MRA of the neck are performed. 3-D/MIP reformats postprocessed. P ercentage stenosis is determined by direct quantitative measurements of distal internal carotid arter y diameter compared with normal reference segments or by criteria similar to NASCET where applicable. COMPARISON: 02/19/2022 FINDINGS: MRA HEAD: Intracranial vertebral arteries: No occlusion or significant stenosis. Basilar artery: No occlusion or significant stenosis. Posterior cerebral arteries: No occlusion or significant stenosis. Intracranial internal carotid arteries: No occlusion or significant stenosis. Anterior cerebral arteries: No occlusion or significant stenosis. Middle cerebral arteries: No occlusion or significant stenosis. No aneurysm. Additional findings: None. MRA NECK: Cervical vertebral arteries: No occlusion or significant stenosis. Common carotid arteries: No occlusion or significant stenosis. Cervical internal carotid arteries: No occlusion or significant stenosis. Additional findings: None. IMPRESSION: 1. No occlusion or significant stenosis of the major head and neck vasculature. Signer Name: Marvin Whittaker MD Signed: 02/22/2022 5:01 PM Workstation Name: [id number]
[2022-02-22] MEDS: ACETAMINOPHEN 325 MG TAB PO PRN (17:38)
--- NOTE | 2022-02-22 19:55 | Progress Note ---
Assessment and Plan Assessment and plan: 46-year-old male past medical history of hypertension and medication noncompliance who presented to the ED with numbness and tingling of his left arm and leg after waking up this morning. Patient describes having trouble sleeping the night prior to presentation but was last seen well at approximately 5:30 PM. Patient denies any vision or speech abnormalities. Patient denies any history of stroke. In the ED, the patient was found to be hemodynamically stable with a blood pressure of 198/124. Patient's labs were unremarkable. Teleneurology was consulted, and the patient was not deemed to be a candidate for tPA. Patient is being admitted to the floor for CVA work-up. # acute ischemic right CVA Unremarkable CT head noncontrast MRI shows right ganglio capsular infarct extending into jimenez radiata -MRI brain and neck unremarkable --Sinus rhythm on EKG, echocardiogram shows moderate LVH, bubble study negative. Continue aspirin 325 mg daily, atorvastatin 40 mg daily. Tele neurology consulted - Has significant left upper and lower extremity weakness, 2\5 strength. On pured diet as per ST. Physical therapy and Occupational Therapy consulted; recommending acute rehab. Cholesterol panel: Triglycerides 73, cholesterol 192, LDL 110, HDL 72; Hemoglobin A1c 4.4 #Hypertensive emergency - home medications: None -BP remained elevated, progressively being optimized with medical regimen, 24 hours post stroke. - continue to monitor #Tobacco dependence #Tobacco/Smoking cessation counseling - Counseled patient about the importance of smoking cessation and the possible sequelae as a result of continued tobacco consumption. The patient expresses understanding. Starting nicotine 14 mg patch daily. -Time: +15 mins #Advanced care planning -Disease education conducted, care plan discussed, diagnoses discussed, prognosis discussed, and patient acknowledges understanding with care plan Disposition: PT recommending acute rehab. Discussed with the patient and the nursing staff. History Interval history: Patient is tolerating pureed, speech is fine, significant left-sided weakness wi th difficulty getting up or ambulate. PT recommending acute rehab. BP remains suboptimally controlled, medical regimen further escalated today. Hospitalist Physical - Constitutional Vitals: Temp Pulse Resp BP Pulse Ox 98.0 F 96 H 18 139/84 95 02/22/22 16:21 02/22/22 16:21 02/22/22 16:21 02/22/22 16:21 02/22/22 16:21 General appearance: Present: no acute distress, well-nourished - EENT Eyes: Present: PERRL, EOM intact. Absent: scleral icterus ENT: clear oral mucosa - Neck Neck: Present: supple - Respiratory Respiratory effort: normal Respiratory: bilateral: CTA - Cardiovascular Rhythm: regular - Extremities Extremities: No edema - Abdominal General gastrointestinal: soft, non-tender, non-distended, normal bowel sounds - Integumentary Integumentary: Absent: rash - Psychiatric Psychiatric: appropriate mood/affect - Neurologic Neurologic: other (Alert/oriented, normal speech, mild left lower facial weakness present, left hand radiation officer 1/3, strength in left upper extremity 2/5, strength of left lower extremity 2/5)) HEART Score - HEART Score Troponin: Troponin T < 0.010 ng/mL (0.00-0.029) 02/19/22 07:42 Results - Labs CBC & Chem 7: 02/19/22 07:42 02/19/22 07:42 Labs: Laboratory Last Values WBC 10.1 K/mm3 (4.5-11.0) 02/19/22 07:42 RBC 5.18 M/mm3 (3.65-5.03) H 02/19/22 07:42 Hgb 17.2 gm/dl (11.8-15.2) H 02/19/22 07:42 Hct 49.0 % (35.5-45.6) H 02/19/22 07:42 MCV 95 fl (84-94) H 02/19/22 07:42 MCH 33 pg (28-32) H 02/19/22 07:42 MCHC 35 % (32-34) H 02/19/22 07:42 RDW 13.2 % (13.2-15.2) 02/19/22 07:42 Plt Count 223 K/mm3 (140-440) 02/19/22 07:42 Lymph % (Auto) 8.5 % (13.4-35.0) L 02/19/22 07:42 [place] % (Auto) 9.6 % (0.0-7.3) H 02/19/22 07:42 Eos % (Auto) 0.8 % (0.0-4.3) 02/19/22 07:42 Baso % (Auto) 0.3 % (0.0-1.8) 02/19/22 07:42 Lymph # (Auto) 0.9 K/mm3 (1.2-5.4) L 02/19/22 07:42 [place] # (Auto) 1.0 K/mm3 (0.0-0.8) H 02/19/22 07:42 Eos # (Auto) 0.1 K/mm3 (0.0-0.4) 02/19/22 07:42 Baso # (Auto) 0.0 K/mm3 (0.0-0.1) 02/19/22 07:42 Seg Neutrophils % 80.8 % (40.0-70.0) H 02/19/22 07:42 Seg Neutrophils # 8.2 K/mm3 (1.8-7.7) H 02/19/22 07:42 PT 13.8 Sec. (12.2-14.9) 02/19/22 07:42 INR 0.93 (0.87-1.13) 02/19/22 07:42 APTT 31.1 Sec. (24.2-36.6) 02/19/22 07:42 Thrombin Time 16.2 Sec. (15.1-19.6) 02/19/22 07:42 Sodium 143 mmol/L (137-145) 02/19/22 07:42 Potassium 4.0 mmol/L (3.6-5.0) 02/19/22 07:42 Chloride 103.5 mmol/L (98-107) 02/19/22 07:42 Carbon Dioxide 26 mmol/L (22-30) 02/19/22 07:42 Anion Gap 18 mmol/L 02/19/22 07:42 BUN 18 mg/dL (9-20) 02/19/22 07:42 Creatinine 1.2 mg/dL (0.8-1.3) 02/19/22 07:42 Estimated GFR > 60 ml/min 02/19/22 07:42 BUN/Creatinine Ratio 15 % 02/19/22 07:42 Glucose 90 mg/dL (75-100) 02/19/22 07:42 POC Glucose 86 mg/dL (70-105) 02/22/22 16:27 Hemoglobin A1c 4.4 % (4-6) 02/19/22 11:04 Calcium 9.6 mg/dL (8.4-10.2) 02/19/22 07:42 Total Bilirubin 0.90 mg/dL (0.1-1.2) 02/19/22 07:42 AST 22 units/L (5-40) 02/19/22 07:42 ALT 18 units/L (7-56) 02/19/22 07:42 Alkaline Phosphatase 70 units/L (35-129) 02/19/22 07:42 Total Creatine Kinase 179 units/L (55-170) H 02/19/22 07:42 CK-MB (CK-2) 2.8 ng/mL (0.0-4.0) 02/19/22 07:42 CK-MB (CK-2) Rel Index 1.5 (0-4) 02/19/22 07:42 Troponin T < 0.010 ng/mL (0.00-0.029) 02/19/22 07:42 Total Protein 6.9 g/dL (6.3-8.2) 02/19/22 07:42 Albumin 4.7 g/dL (3.9-5) 02/19/22 07:42 Albumin/Globulin Ratio 2.1 % 02/19/22 07:42 Triglycerides 73 mg/dL (2-149) 02/19/22 11:05 Cholesterol 192 mg/dL (50-199) 02/19/22 11:05 LDL Cholesterol Direct 110 mg/dL (50-130) 02/19/22 11:05 HDL Cholesterol 72 mg/dL (40-59) H 02/19/22 11:05 Cholesterol/HDL Ratio 2.66 % 02/19/22 11:05 Urine Color Yellow (Yellow) 02/19/22 12:17 Urine Turbidity Clear (Clear) 02/19/22 12:17 Urine pH 6.0 (5.0-7.0) 02/19/22 12:17 Ur Specific [place] 1.013 (1.003-1.030) 02/19/22 12:17 Urine Protein 30 mg/dl mg/dL (Negative) 02/19/22 12:17 Urine Glucose (UA) Neg mg/dL (Negative) 02/19/22 12:17 Urine Ketones Tr mg/dL (Negative) 02/19/22 12:17 Urine Blood Neg (Negative) 02/19/22 12:17 Urine Nitrite Neg (Negative) 02/19/22 12:17 Urine Bilirubin Neg (Negative) 02/19/22 12:17 Urine Urobilinogen < 2 mg/dL (<2.0) 02/19/22 12:17 Ur Leukocyte Esterase Neg (Negative) 02/19/22 12:17 Urine WBC (Auto) < 1.0 /HPF (0.0-6.0) 02/19/22 12:17 Urine RBC (Auto) < 1.0 /HPF (0.0-6.0) 02/19/22 12:17 U Epithel Cells (Auto) < 1.0 /HPF (0-13.0) 02/19/22 12:17 Urine Opiates Screen Negative 02/19/22 12:17 Urine Methadone Screen Negative 02/19/22 12:17 Ur Barbiturates Screen Negative 02/19/22 12:17 Ur Phencyclidine Scrn Negative 02/19/22 12:17 Ur Amphetamines Screen Negative 02/19/22 12:17 U Benzodiazepines Scrn Negative 02/19/22 12:17 Urine Cocaine Screen Negative 02/19/22 12:17 U Marijuana (THC) Screen Negative 02/19/22 12:17 Drugs of Abuse Note Disclamer 02/19/22 12:17 Plasma/Serum Alcohol < 0.01 % (0-0.07) 02/19/22 07:42 Amaya/IV: Voiding Method Urinal Active Medications - Current Medications Current Medications: Generic Name Dose Route Start Last Admin Trade Name Freq PRN Reason Stop Dose Admin Acetaminophen 650 mg 02/19/22 11:00 02/22/22 17:38 Acetaminophen 325 Mg Tab PO 650 mg Q4H PRN Administration Pain MILD(1-3)/Fever >100.5/ARROYO Aspirin 325 mg 02/20/22 10:00 02/22/22 09:59 Aspirin 325 Mg Tab PO 325 mg QDAY CHRISTY Administration Atorvastatin Calcium 40 mg 02/19/22 22:00 02/21/22 22:32 Atorvastatin 40 Mg Tab PO 40 mg QHS CHRISTY Administration Hydralazine HCl 10 mg 02/19/22 18:48 02/22/22 13:46 Hydralazine 20 Mg/1 Ml Inj IV 10 mg Q6HR PRN Administration Hypertension Losartan Potassium 50 mg 02/22/22 14:00 02/22/22 14:50 Losartan 50 Mg Tab PO 50 mg QDAY CHRISTY Administration Nicotine 14 mg 02/19/22 19:00 02/22/22 09:58 Nicotine 14 Mg/24 Hr Patch TD 14 mg QDAY CHRISTY Administration Nifedipine 30 mg 02/20/22 10:00 02/22/22 09:59 Nifedipine Xl 30 Mg Tab PO 30 mg QDAY CHRISTY Administration Nifedipine 60 mg 02/22/22 14:00 02/22/22 14:50 Nifedipine Xl 60 Mg Tab PO 60 mg Q12HR CHRISTY Administration Ondansetron HCl 4 mg 02/19/22 11:00 Ondansetron 4 Mg/2 Ml Inj IV Q8H PRN Nausea And Vomiting Sodium Chloride 10 ml 02/19/22 22:00 02/22/22 09:59 Sodium Chloride 0.9% 10 Ml Flush Syringe IV 10 ml BID CHRISTY Administration Sodium Chloride 10 ml 02/19/22 11:00 Sodium Chloride 0.9% 10 Ml Flush Syringe IV PRN PRN LINE FLUSH
[2022-02-23] MEDS: ACETAMINOPHEN 325 MG TAB PO PRN ×2 (03:31→20:54)
[2022-02-23] MEDS: NICOTINE 14 MG/24 HR PATCH TD SCH (10:11)
[2022-02-23] MEDS: ASPIRIN 325 MG TAB PO SCH (10:11)
[2022-02-23] MEDS: NIFEdipine XL 60 MG TAB PO SCH ×2 (10:12→21:53)
[2022-02-23] MEDS: LOSARTAN 50 MG TAB PO SCH (10:12)
--- NOTE | 2022-02-23 12:33 | Electrocardiograph Report ---
[facility] Test Date: 2022-02-19 Test Time: 08:51:21 Pat Name: GERARDO ROSALES Department: Room: A387 Gender: M [employer] Worker: ANAHI : 1975 Requested By: NEWTON SANTIAGO Order Number: [id number] Reading MD: Miguelangel Luis Measurements Intervals [place] Rate: 62 P: 18 WI: 146 QRS: 63 QRSD: 79 T: 56 QT: 448 QTc: 456 Interpretive Statements Sinus rhythm Consider left ventricular hypertrophy No previous ECG available for comparison Electronically Signed On 02-23-2022 9:32:58 PDT by Miguelangel Luis
--- NOTE | 2022-02-23 12:51 | Progress Note ---
Assessment and Plan Assessment and plan: 46-year-old male past medical history of hypertension and medication noncompliance who presented to the ED with numbness and tingling of his left arm and leg after waking up this morning. Patient describes having trouble sleeping the night prior to presentation but was last seen well at approximately 5:30 PM. Patient denies any vision or speech abnormalities. Patient denies any history of stroke. In the ED, the patient was found to be hemodynamically stable with a blood pressure of 198/124. Patient's labs were unremarkable. Teleneurology was consulted, and the patient was not deemed to be a candidate for tPA. Patient is being admitted to the floor for CVA work-up. #Acute ischemic right CVA Unremarkable CT head noncontrast MRI shows right ganglio capsular infarct extending into jimenez radiata -MRI brain and neck unremarkable --Sinus rhythm on EKG, echocardiogram shows moderate LVH, bubble study negative. Continue aspirin 325 mg daily, atorvastatin 40 mg daily. Tele neurology consulted - Has significant left upper and lower extremity weakness, 2\5 strength. On pured diet as per ST. Physical therapy and Occupational Therapy consulted; recommending acute rehab. Cholesterol panel: Triglycerides 73, cholesterol 192, LDL 110, HDL 72; Hemoglobin A1c 4.4 #Hypertensive emergencyresolved #Hypertension - home medications: N/A - current medications: Losartan 50 mg daily and nifedipine 60 mg every 12 hours - SBP goal <160 and DBP goal <90 while inpatient - continue to monitor #Tobacco dependence #Tobacco/Smoking cessation counseling - Counseled patient about the importance of smoking cessation and the possible sequelae as a result of continued tobacco consumption. The patient expresses understanding. Starting nicotine 14 mg patch daily. -Time: +15 mins #Advanced care planning -Disease education conducted, care plan discussed, diagnoses discussed, prognosis discussed, and patient acknowledges understanding with care plan -Time: +30 min #Discharge planning - Patient is pending acute rehab placement - Case management has been made aware. Disposition Plan: Pending acute rehab placement Total Time Spent with Patient (Minutes): 30 minutes History Interval history: No acute events overnight. Hospitalist Physical - Constitutional Vitals: Temp Pulse Resp BP Pulse Ox 97.7 F 69 20 153/97 98 02/23/22 11:42 02/23/22 11:42 02/23/22 11:42 02/23/22 11:42 02/23/22 11:42 General appearance: Present: no acute distress, well-nourished - EENT Eyes: Present: PERRL, EOM intact ENT: hearing intact, clear oral mucosa, dentition normal - Neck Neck: Present: supple, normal ROM - Respiratory Respiratory effort: normal Respiratory: bilateral: CTA - Cardiovascular Rhythm: regular Heart Sounds: Present: S1 & S2 - Extremities Extremities: no ischemia, pulses intact, pulses symmetrical, No edema, normal temperature, normal color Peripheral Pulses: within normal limits - Abdominal General gastrointestinal: soft, non-tender, non-distended, normal bowel sounds - Integumentary Integumentary: Present: clear, warm, dry - Psychiatric Psychiatric: appropriate mood/affect, intact judgment & insight, memory intact, cooperative - Neurologic Neurologic: CNII-XII intact, focal deficits (Weakness and numbness of the left upper and lower extremity) - Allied Health Allied health notes reviewed: nursing HEART Score - HEART Score Troponin: Troponin T < 0.010 ng/mL (0.00-0.029) 02/19/22 07:42 Results - Labs CBC & Chem 7: 02/19/22 07:42 02/19/22 07:42 Labs: Laboratory Last Values WBC 10.1 K/mm3 (4.5-11.0) 02/19/22 07:42 RBC 5.18 M/mm3 (3.65-5.03) H 02/19/22 07:42 Hgb 17.2 gm/dl (11.8-15.2) H 02/19/22 07:42 Hct 49.0 % (35.5-45.6) H 02/19/22 07:42 MCV 95 fl (84-94) H 02/19/22 07:42 MCH 33 pg (28-32) H 02/19/22 07:42 MCHC 35 % (32-34) H 02/19/22 07:42 RDW 13.2 % (13.2-15.2) 02/19/22 07:42 Plt Count 223 K/mm3 (140-440) 02/19/22 07:42 Lymph % (Auto) 8.5 % (13.4-35.0) L 02/19/22 07:42 [place] % (Auto) 9.6 % (0.0-7.3) H 02/19/22 07:42 Eos % (Auto) 0.8 % (0.0-4.3) 02/19/22 07:42 Baso % (Auto) 0.3 % (0.0-1.8) 02/19/22 07:42 Lymph # (Auto) 0.9 K/mm3 (1.2-5.4) L 02/19/22 07:42 [place] # (Auto) 1.0 K/mm3 (0.0-0.8) H 02/19/22 07:42 Eos # (Auto) 0.1 K/mm3 (0.0-0.4) 02/19/22 07:42 Baso # (Auto) 0.0 K/mm3 (0.0-0.1) 02/19/22 07:42 Seg Neutrophils % 80.8 % (40.0-70.0) H 02/19/22 07:42 Seg Neutrophils # 8.2 K/mm3 (1.8-7.7) H 02/19/22 07:42 PT 13.8 Sec. (12.2-14.9) 02/19/22 07:42 INR 0.93 (0.87-1.13) 02/19/22 07:42 APTT 31.1 Sec. (24.2-36.6) 02/19/22 07:42 Thrombin Time 16.2 Sec. (15.1-19.6) 02/19/22 07:42 Sodium 143 mmol/L (137-145) 02/19/22 07:42 Potassium 4.0 mmol/L (3.6-5.0) 02/19/22 07:42 Chloride 103.5 mmol/L (98-107) 02/19/22 07:42 Carbon Dioxide 26 mmol/L (22-30) 02/19/22 07:42 Anion Gap 18 mmol/L 02/19/22 07:42 BUN 18 mg/dL (9-20) 02/19/22 07:42 Creatinine 1.2 mg/dL (0.8-1.3) 02/19/22 07:42 Estimated GFR > 60 ml/min 02/19/22 07:42 BUN/Creatinine Ratio 15 % 02/19/22 07:42 Glucose 90 mg/dL (75-100) 02/19/22 07:42 POC Glucose 99 mg/dL (70-105) 02/23/22 07:12 Hemoglobin A1c 4.4 % (4-6) 02/19/22 11:04 Calcium 9.6 mg/dL (8.4-10.2) 02/19/22 07:42 Total Bilirubin 0.90 mg/dL (0.1-1.2) 02/19/22 07:42 AST 22 units/L (5-40) 02/19/22 07:42 ALT 18 units/L (7-56) 02/19/22 07:42 Alkaline Phosphatase 70 units/L (35-129) 02/19/22 07:42 Total Creatine Kinase 179 units/L (55-170) H 02/19/22 07:42 CK-MB (CK-2) 2.8 ng/mL (0.0-4.0) 02/19/22 07:42 CK-MB (CK-2) Rel Index 1.5 (0-4) 02/19/22 07:42 Troponin T < 0.010 ng/mL (0.00-0.029) 02/19/22 07:42 Total Protein 6.9 g/dL (6.3-8.2) 02/19/22 07:42 Albumin 4.7 g/dL (3.9-5) 02/19/22 07:42 Albumin/Globulin Ratio 2.1 % 02/19/22 07:42 Triglycerides 73 mg/dL (2-149) 02/19/22 11:05 Cholesterol 192 mg/dL (50-199) 02/19/22 11:05 LDL Cholesterol Direct 110 mg/dL (50-130) 02/19/22 11:05 HDL Cholesterol 72 mg/dL (40-59) H 02/19/22 11:05 Cholesterol/HDL Ratio 2.66 % 02/19/22 11:05 Urine Color Yellow (Yellow) 02/19/22 12:17 Urine Turbidity Clear (Clear) 02/19/22 12:17 Urine pH 6.0 (5.0-7.0) 02/19/22 12:17 Ur Specific [place] 1.013 (1.003-1.030) 02/19/22 12:17 Urine Protein 30 mg/dl mg/dL (Negative) 02/19/22 12:17 Urine Glucose (UA) Neg mg/dL (Negative) 02/19/22 12:17 Urine Ketones Tr mg/dL (Negative) 02/19/22 12:17 Urine Blood Neg (Negative) 02/19/22 12:17 Urine Nitrite Neg (Negative) 02/19/22 12:17 Urine Bilirubin Neg (Negative) 02/19/22 12:17 Urine Urobilinogen < 2 mg/dL (<2.0) 02/19/22 12:17 Ur Leukocyte Esterase Neg (Negative) 02/19/22 12:17 Urine WBC (Auto) < 1.0 /HPF (0.0-6.0) 02/19/22 12:17 Urine RBC (Auto) < 1.0 /HPF (0.0-6.0) 02/19/22 12:17 U Epithel Cells (Auto) < 1.0 /HPF (0-13.0) 02/19/22 12:17 Urine Opiates Screen Negative 02/19/22 12:17 Urine Methadone Screen Negative 02/19/22 12:17 Ur Barbiturates Screen Negative 02/19/22 12:17 Ur Phencyclidine Scrn Negative 02/19/22 12:17 Ur Amphetamines Screen Negative 02/19/22 12:17 U Benzodiazepines Scrn Negative 02/19/22 12:17 Urine Cocaine Screen Negative 02/19/22 12:17 U Marijuana (THC) Screen Negative 02/19/22 12:17 Drugs of Abuse Note Disclamer 02/19/22 12:17 Plasma/Serum Alcohol < 0.01 % (0-0.07) 02/19/22 07:42 Amaya/IV: Voiding Method Urinal Active Medications - Current Medications Current Medications: Generic Name Dose Route Start Last Admin Trade Name Freq PRN Reason Stop Dose Admin Acetaminophen 650 mg 02/19/22 11:00 02/23/22 03:31 Acetaminophen 325 Mg Tab PO 650 mg Q4H PRN Administration Pain MILD(1-3)/Fever >100.5/ARROYO Aspirin 325 mg 02/20/22 10:00 02/23/22 10:11 Aspirin 325 Mg Tab PO 325 mg QDAY CHRISTY Administration Atorvastatin Calcium 40 mg 02/19/22 22:00 02/22/22 22:44 Atorvastatin 40 Mg Tab PO 40 mg QHS CHRISTY Administration Hydralazine HCl 10 mg 02/19/22 18:48 02/22/22 13:46 Hydralazine 20 Mg/1 Ml Inj IV 10 mg Q6HR PRN Administration Hypertension Losartan Potassium 50 mg 02/22/22 14:00 02/23/22 10:12 Losartan 50 Mg Tab PO 50 mg QDAY CHRISTY Administration Nicotine 14 mg 02/19/22 19:00 02/23/22 10:11 Nicotine 14 Mg/24 Hr Patch TD 14 mg QDAY CHRISTY Administration Nifedipine 60 mg 02/22/22 14:00 02/23/22 10:12 Nifedipine Xl 60 Mg Tab PO 60 mg Q12HR CHRISTY Administration Ondansetron HCl 4 mg 02/19/22 11:00 Ondansetron 4 Mg/2 Ml Inj IV Q8H PRN Nausea And Vomiting Sodium Chloride 10 ml 02/19/22 22:00 02/22/22 22:45 Sodium Chloride 0.9% 10 Ml Flush Syringe IV 10 ml BID CHRISTY Administration Sodium Chloride 10 ml 02/19/22 11:00 Sodium Chloride 0.9% 10 Ml Flush Syringe IV PRN PRN LINE FLUSH
[2022-02-23 21:02] VITALS: BP 150/99
== END 2022-02-23 23:07 | DRG 65 ==
LOC: ED 07:06 → 3A 10:42
PROVIDERS: ADMIT Student in an Organized Health Care Education/Training Program; ATTEND Student in an Organized Health Care Education/Training Program
DX: I63.9 Cerebral infarction, unspecified (principal); G81.04 Flaccid hemiplegia affecting left nondominant side; I16.1 Hypertensive emergency; F17.200 Nicotine dependence, unspecified, uncomplicated; I10 Essential (primary) hypertension; Z71.6 Tobacco abuse counseling; Z82.49 Family history of ischemic heart disease and other diseases of the circulatory system; Z83.3 Family history of diabetes mellitus; Z82.3 Family history of stroke
CPT/HCPCS: 36415; 70450; 70544; 70549; 70551; 71045; 80053; 80061; 80307; 80320; 81001; 82550; 82553; 82962; 83036; 84484; 85025; 85610; 85670; 85730; 93005; 93306; 96374; 96376; 99285; 99406; G0378; A9575; C8929; G0480; J0360; J2060